=== PATIENT | male | born 1980 | race African-American/Black ===

== ENCOUNTER 2021-05-31 06:21 | Emergency (ER) | payer MEDICAID, OTHER ==
[~2021-05-31] VITALS: Ht 177.8 cm; Wt 93.0 kg
[2021-05-31 08:24] VITALS: BP 147/85
[2021-05-31] MEDS ORDERED: TETANUS-DIPTH-ACEL PERTUSSIS 0.5ML SYR Tdap IM ONE (08:45)
== END 2021-05-31 08:55 | disposition home or self-care (01) ==
LOC: ER 06:21
DX: S01.81XA Laceration without foreign body of other part of head, initial encounter (principal); W20.8XXA Other cause of strike by thrown, projected or falling object, initial encounter; Y93.89 Activity, other specified; Y92.69 Other specified industrial and construction area as the place of occurrence of the external cause; Y99.8 Other external cause status
CPT/HCPCS: 12011; 90471; 90715